=== PATIENT | female | born 1970 | race Caucasian/White ===

== ENCOUNTER 2016-10-01 21:17 | Emergency (ER) | payer BC, MEDICAID ==
[~2016-10-01] VITALS: Ht 152.4 cm; Wt 84.0 kg
[2016-10-01 21:31] VITALS: Ht 152.4 cm; Wt 84.0 kg
--- NOTE | 2016-10-01 22:41 | ERA ---
ER Documentation Chief Complaint Date/Time DATE: 10/01/16 TIME: 22:41 Chief Complaint cp today while sitting down HPI The patient is a 46-year-old female, presenting to the ER because of chest discomfort intermittently for the last 2 days. She took some herbal medicine that helped with her chest discomfort. She denies any chest pain now, denies dyspnea, abdominal pain, vomiting, dysuria, diarrhea, constipation. She attributed that because she has a lot of stress in her life. She does not smoke nor drink nor does illegal drug Past medical/surgical history: None ROS All systems reviewed and are negative except as per history of present illness. Medications Home Meds No Active Prescriptions or Reported Meds Allergies Allergies: Coded Allergies: No Known Allergy (Unverified , 10/01/16) PMhx/Soc Hx Alcohol Use: No Hx Substance Use: No Hx Tobacco Use: No Physical Exam Vitals Vital Signs Date Time Temp Pulse Resp B/P Pulse Ox O2 Delivery O2 Flow Rate FiO2 10/02/16 00:56 76 18 123/89 98 Room Air 10/02/16 00:10 86 12 125/89 100 10/01/16 21:31 98.3 98 16 124/80 97 Physical Exam Const: No acute distress. Head: Atraumatic. Eyes: Normal Conjunctiva. ENT: Normal External Ears, Nose and Mouth. Neck: Full range of motion. No meningismus. Resp: Clear to auscultation bilaterally. Cardio: Regular rate and rhythm, no murmurs. Abd: Soft, non distended, normal bowel sounds, non tender. Skin: No petechiae or rashes. Back: No midline or flank tenderness. Ext: No cyanosis, or edema. Neur: Awake and alert. No focal deficit Psych: Normal Mood and Affect. Result Diagram: 10/01/16229910/01/16 2300 Results 24 hrs Laboratory Tests Test 10/01/16 23:00 White Blood Count 8.110^3/ul Red Blood Count 4.6610^6/ul Hemoglobin 14.0g/dl Hematocrit 42.4% Mean Corpuscular Volume 91.0fl Mean Corpuscular Hemoglobin 30.0pg Mean Corpuscular Hemoglobin Concent 33.0g/dl Red Cell Distribution Width 12.1% Platelet Count 45275^3/UL Mean Platelet Volume 10.2fl Neutrophils % 50.0% Lymphocytes % 39.8% Monocytes % 6.9% Eosinophils % 2.0% Basophils % 0.9% Nucleated Red Blood Cells % 0.0/100WBC Neutrophils # 4.110^3/ul Lymphocytes # 3.210^3/ul Monocytes # 0.610^3/ul Eosinophils # 0.210^3/ul Basophils # 0.110^3/ul Nucleated Red Blood Cells # 0.010^3/ul Prothrombin Time 12.2Sec Prothrombin Time Ratio 1.0 INR International Normalized Ratio 0.91 Activated Partial Thromboplast Time 21.8Sec D-Dimer 220.00ng/ml D-Dimer Comment Sodium Level 135mmol/L Potassium Level 4.0mmol/L Chloride Level 100mmol/L Carbon Dioxide Level 26mmol/L Anion Gap 13 Blood Urea Nitrogen 13mg/dl Creatinine 0.59mg/dl Glucose Level 279mg/dl Calcium Level 9.2mg/dl Troponin I < 0.012ng/ml Procedures/[place] [address] Rad[facility] Main Line: [phone] DIAGNOSTIC IMAGING REPORT Patient: PAMELLA EPSTEIN : 1970 Age: 46 Sex: F MR #: [id number] DOS: 10/01/16 2249 Ordering MD: ALFREDO ROSE MD Location: E/R Room/Bed: PROCEDURE: XR Chest. CLINICAL INDICATION: Chest pain. TECHNIQUE: Portable AP upright view of the chest was obtained. COMPARISON: None available. FINDINGS: The cardiomediastinal silhouette is within normal limits. The lungs are clear. There is no evidence for pleural effusion, pneumothorax or pulmonary vascular congestion. The osseous structures are intact with no evidence for acute abnormality. RPTAT:HJJR IMPRESSION: No evidence for acute intrathoracic pathology. Physician Lay Date Time Electronically viewed and signed by Physician Lay on 10/01/2016 23:23 JR/ CC: ALFREDO ROSE MD EKG: Read by emergency physician at 9:23 PM Rate/Rhythm: Normal Sinus Rhythm 94 beats/min QRS, ST, T-waves: No ST elevation, no T inversion Impression: Abnormal EKG EKG: Read by emergency physician at 1148 PM Rate/Rhythm: Normal Sinus Rhythm 94 beats/min QRS, ST, T-waves: No ST elevation, no T inversion Impression: Abnormal EKG MEDICAL MAKING DECISION: The patient is a 46-year-old female, presenting with acute chest pain of unclear etiology, acute distress, acute hyperglycemia. She remains well in the emergency department and denies any recurrent chest pain. The differential diagnoses considered include but are not limited to acute coronary syndrome, acute myocardial infarction, pericarditis, pulmonary embolism , aortic dissection, pneumonia, pleural effusion, pneumothorax, GERD, chest wall pain. Departure Diagnosis: Primary Impression: Chest pain Additional Impressions: Stress Hyperglycemia Condition: Good Comments I discussed the findings with the patient. I advised the patient to follow-up with the primary physician in about 1-2 days, sooner if needed and return if any concern. The patient's blood pressure was elevated (>120/80) but appears stable without evidence of hypertension emergency or urgency. The patient was counseled about the risks of hypertension and urged to pursue outpatient monitoring and therapy within a week with their primary care physician. ALFREDO ROSE MD Oct 01, 2016 22:41
--- NOTE | 2016-10-01 23:24 | RADRPT ---
PROCEDURE: XR Chest. CLINICAL INDICATION: Chest pain. TECHNIQUE: Portable AP upright view of the chest was obtained. COMPARISON: None available. FINDINGS: The cardiomediastinal silhouette is within normal limits. The lungs are clear. There is no evidenc e for pleural effusion, pneumothorax or pulmonary vascular congestion. The osseous structures are i ntact with no evidence for acute abnormality. RPTAT:HJJR IMPRESSION: No evidence for acute intrathoracic pathology. Physician Lay Date Time Electronically viewed and signed by Physician Lay on 10/01/2016 23:23 JR/
[2016-10-01 23:27] LABS: ADD SCAN DIFF NO
[2016-10-01 23:33] LABS: BASOPHIL # 0.1 10^3/ul (0.0-0.1); BASOPHILS % 0.9 % (0.0-2.0); EOSINOPHILS # 0.2 10^3/ul (0.0-0.5); HEMATOCRIT 42.4 % (37.0-47.0); LYMPHOCYTES # 3.2 10^3/ul (0.8-2.9); LYMPHOCYTES % 39.8 % (15.0-51.0); MEAN PLATELET VOLUME 10.2 fl (7.4-10.4); MONOCYTE # 0.6 10^3/ul (0.3-0.9); MONOCYTES % 6.9 % (0.0-11.0); NEUTROPHIL # 4.1 10^3/ul (1.6-7.5); PLATELET COUNT 298 10^3/UL (140-415); RED BLOOD COUNT 4.66 10^6/ul (4.20-5.40); RED CELL DISTRIBUTION WIDTH 12.1 % (11.5-14.5); WHITE BLOOD COUNT 8.1 10^3/ul (4.8-10.8)
[2016-10-01 23:43] LABS: INR 0.91; PROTIME 12.2 Sec (12.2-14.2)
[2016-10-01 23:44] LABS: PARTIAL THROMBOPLASTIN TIME 21.8 Sec (25.0-35.0)
[2016-10-01 23:49] LABS: CHLORIDE 100 mmol/L (97-110); SODIUM 135 mmol/L (135-144)
[2016-10-01 23:52] LABS: ANION GAP 13 (8-16); CARBON DIOXIDE 26 mmol/L (21-31); CREATININE 0.59 mg/dl (0.44-1.00)
[2016-10-01 23:53] LABS: BLOOD UREA NITROGEN 13 mg/dl (7-20); CALCIUM 9.2 mg/dl (8.4-10.2); GLUCOSE 279 mg/dl (70-220)
[2016-10-02 00:13] LABS: TROPONIN-I < 0.012 ng/ml (0.00-0.12)
[2016-10-02 00:56] VITALS: BP 123/89; PULSE 76; RESP 18
== END 2016-10-02 00:55 | disposition home or self-care (01) ==
LOC: E/R 21:17
DX: R07.9 Chest pain, unspecified (principal); F43.9 Reaction to severe stress, unspecified; R73.9 Hyperglycemia, unspecified
CPT/HCPCS: 36415; 71010; 80048; 84484; 85025; 85378; 85610; 85730; 93005; Z7502